=== PATIENT | male | born 1975 | race Caucasian/White ===

== ENCOUNTER 2024-09-02 13:58 | Emergency (ER) | payer SELFPAY ==
[~2024-09-02] VITALS: Ht 170.2 cm; Wt 73.2 kg
[2024-09-02 14:01] VITALS: BP 136/76; PULSE 92; RESP 18; TEMP 98; O2SAT 98
[2024-09-02] MEDS ORDERED: IBUP-1492 PO (14:57)
[2024-09-02] MEDS: KETOROLAC TROMETHAMINE 30 MG/ML VIAL IM ONE (15:10)
== END 2024-09-02 15:21 | disposition home or self-care (01) ==
LOC: EMS 14:02
DX: S40.012A Contusion of left shoulder, initial encounter (principal); X58.XXXA Exposure to other specified factors, initial encounter; Y93.89 Activity, other specified; Y92.89 Other specified places as the place of occurrence of the external cause; Y99.8 Other external cause status
CPT/HCPCS: 99283; 73030; 96372; J1885

== ENCOUNTER 2025-01-03 21:36 | Emergency (ER) | payer MEDICAID ==
[~2025-01-03] VITALS: Ht 177.8 cm; Wt 79.5 kg
[~2025-01-03 21:36] MED LIST: IBUP-1492 PO
[2025-01-03 22:01] VITALS: BP 131/83; PULSE 98; RESP 16; TEMP 98.2; O2SAT 98
== END 2025-01-03 23:45 | disposition left against medical advice (07) ==
LOC: EMS 21:37
DX: N50.819 Testicular pain, unspecified (principal); Z53.21 Procedure and treatment not carried out due to patient leaving prior to being seen by health care provider